=== PATIENT | female | born 1975 ===

== ENCOUNTER 2017-07-02 07:19 | Emergency (ER) | payer OTHER ==
[~2017-07-02] VITALS: Ht 160 cm; Wt 53.0 kg
[2017-07-02 07:21] VITALS: Ht 160 cm; Wt 53.0 kg
[2017-07-02] MEDS ORDERED: ALBUT/IPRATROP 3MG/0.5MG NEB 3 ML VIAL INH STA (07:31)
[2017-07-02] MEDS ORDERED: OSELTAMIVIR PHOSPHATE 75 MG CAP PO STA (07:31)
[2017-07-02] MEDS: ACETAMINOPHEN 500 MG TAB PO STA ×2 (07:31→07:40)
[2017-07-02] MEDS ORDERED: ONDANSETRON 4MG OD TAB PO STA (07:31)
[2017-07-02] MEDS ORDERED: PRED20TA PO ×2 (07:36→07:51)
[2017-07-02] MEDS ORDERED: ACET-1222 PO (07:36)
[2017-07-02] MEDS ORDERED: IBUPROFEN 600 MG TAB PO STA (07:47)
[2017-07-02] MEDS ORDERED: ONDA4TAB10 SL (07:51)
[2017-07-02] MEDS ORDERED: OSEL75CA12 PO (07:51)
--- NOTE | 2017-07-02 07:52 | EMERGENCY ROOM VISIT NOTE ---
History Report prepared by Gerald: Alexei Rodriguez Under the Supervision of: Dr. Daron Delgado D.O. First contact with patient: 07:24 Chief Complaint: COUGH Stated Complaint: COUGHING,CAN'T BREATHE Nursing Triage Summary: coughing and fever and hx of asthma but inhaler is not working since saturday c/o SAHA History of Present Illness The patient is a 42 year old female who presents to the Emergency Room with complaints of a persistent cough that she has been experiencing for the past couple of days. The patient states that she has been coughing and experiencing flu-like symptoms for the past couple of days, and recently she has been having difficulty breathing. She is also complaining of nausea, headaches, sorethroat, and a runny nose. Upon arrival to the Emergency Department the patient is febrile. The patient and her note that everyone on her household has began to develop the same symptoms over the past day. She has a history of asthma and does have an inhaler at home. The inhaler has not been improving/ relieving her symptoms. Source of History: patient, spouse/significant other Onset: Couple of days [employer]. Position: other (Respiratory) Quality: other (Cough) Timing: other (Persistent) Associated Symptoms: + fevers, + headache, + sorethroat, + SOB, + nausea Review of Systems See HPI for pertinent positives & negatives. A total of 10 systems reviewed and were otherwise negative. Past Medical & Surgical Medical Problems: (1) History of pre-eclampsia (2) Hx of bronchitis Family History Hypertension Social History Drug Use: none Marital Status: Housing Status: lives with family Current/Historical Medications Scheduled Ondasetron Odt (Zofran Odt), 4 MG SL Q6H Oseltamivir (Tamiflu), 75 MG PO BID Prednisone (Prednisone), 0 PO DAILY Prednisone (Prednisone), 1 TAB PO DAILY Scheduled PRN Acetaminophen (Acetaminophen Extra Stren), 1,000 MG PO Q8 PRN for Pain or Fever Allergies Coded Allergies: No Known Allergies (Verified , 07/02/17) Physical Exam Vital Signs Date Time Temp Pulse Resp B/P (MAP) Pulse Ox O2 Delivery O2 Flow Rate FiO2 07/02/17 08:15 37.0 122 18 114/80 95 07/02/17 07:21 38.1 111 18 131/72 94 Physical Exam CONSTITUTIONAL/VITAL SIGNS: Reviewed / noted above. GENERAL: Non-toxic in appearance. INTEGUMENTARY: Warm, dry, and [place]. HEAD: Normocephalic. EYES: without scleral icterus or trauma. ENT/OROPHARYNX: clear and moist. LYMPHADENOPATHY/NECK: Is supple without lymphadenopathy or meningismus. RESPIRATORY: Lungs clear and equal. CARDIOVASCULAR: Regular rate and rhythm. GI/ABDOMEN: Soft and nontender. No organomegaly or pulsatile mass. No rebound or guarding. Normal bowel sounds. EXTREMITIES: Warm and well perfused. BACK: No CVA tenderness. NEUROLOGICAL: Intact without focal deficits. PSYCHIATRIC: normal affect. MUSCULOSKELETAL: Normally developed with good muscle tone. Medical Decision & Procedures Medications Administered Medications (Trade) Dose Ordered Sig/Rachelle Route Start Time Stop Time Status Last Admin Dose Admin Oseltamivir Phosphate (Tamiflu Cap) 75 mg NOW STAT PO 07/02/17 07:31 07/02/17 07:33 DC 07/02/17 07:40 75 MG Ondansetron HCl (Zofran Odt) 4 mg NOW STAT PO 07/02/17 07:31 07/02/17 07:33 DC 07/02/17 07:39 4 MG Albuterol/ Ipratropium (Duoneb) 3 ml NOW STAT INH 07/02/17 07:31 07/02/17 07:33 DC 07/02/17 07:40 3 ML Prednisone (PredniSONE TAB) 60 mg NOW STAT PO 07/02/17 07:33 07/02/17 07:34 DC 07/02/17 07:40 60 MG Ibuprofen (Motrin Tab) 600 mg NOW STAT PO 07/02/17 07:47 07/02/17 07:50 DC 07/02/17 07:47 600 MG ED Course 0726: Previous medical records were reviewed. The patient was evaluated in room A10. A complete history and physical examination was performed. 0731: Ordered Duoneb INH, Zofran 4 mg PO, Tylenol 500 mg PO, Tamiflu Cap 75 mg PO. 0733: Ordered Prednisone 60 mg PO. 0747: Ordered Motrin 600 mg PO. 0754: On reevaluation, the patient is resting in bed. I discussed the results and findings with the patient. She verbalized agreement of the treatment plan. The patient was discharged home. Medical Decision Differential includes viral illness, influenza, streptococcal pharyngitis, meningitis, pneumonia, sinusitis, UTI, pyelonephritis, otitis media. This is a 42-year-old female who presents to the ED with a chief complaint of shortness of breath. The patient reports a cough, sore throat, runny nose and nausea as well as a slight headache for the past 2 days. She states that all the members of her family have had similar symptoms over the past 4-5 days. She has a temperature today of 38.1. Heart rate is 111. She does report a history of asthma and states that her inhalers aren't helping. The patient's physical exam reveals a 42-year-old female in no distress. Her breathing appears comfortable. Posterior oropharynx is clear. There is no lymphadenopathy. Lungs are currently clear. Abdomen was soft. The patient symptoms are consistent with the flulike illness that has been in the area currently. She was started on Tamiflu since her symptoms have been present for 2 days. She was given Motrin for the fever and some Zofran for nausea. She was given a DuoNeb treatment here as well as started on prednisone for her asthma. She was discharged on a prednisone, Tamiflu and Zofran. Medication Reconcilliation Current Medication List: was personally reviewed by me Blood Pressure Screening Patient's blood pressure: Normal blood pressure Impression Primary Impression: Flu-like symptoms Scribe Attestation The scribe's documentation has been prepared under my direction and personally reviewed by me in its entirety. I confirm that the note above accurately reflects all work, treatment, procedures, and medical decision making performed by me. Departure Information Dispostion Home / Self-Care Prescriptions Prednisone (Prednisone) 20 Mg Tab 1 TAB PO DAILY for 4 Days, #4 TAB Prov: Daron Delgado D.O. 07/02/17 Ondasetron Odt (ZOFRAN ODT) 4 Mg Tab 4 MG SL Q6H for Nausea, #15 TAB Prov: Daron Delgado D.O. 07/02/17 Oseltamivir (Tamiflu) 75 Mg Cap 75 MG PO BID, #10 CAP Prov: Daron Delgado D.O. 07/02/17 Referrals No Doctor, Assigned (PCP) Patient Instructions [facility] Additional Instructions Prednisone as prescribed for asthma. Tamiflu as prescribed for influenza. Zofran: Allow one tablet to dissolve under the tongue every 6 hours as needed for nausea or vomiting. Take Tylenol/Motrin as needed for fevers and discomfort. Drink plenty of fluids. Follow-up with your doctor for further care and evaluation in 5-7 days if not improving. Return to the emergency department for worsening or new symptoms or any concerns. You have been examined and treated today on an emergency basis only. This is not a substitute for, or an effort to provide, complete comprehensive medical care. It is impossible to recognize and treat all injuries or illnesses in a single emergency department visit. It is therefore important that you follow up closely with your doctor. Call as soon as possible for an appointment.
[2017-07-02 08:15] VITALS: BP 114/80; PULSE 122; TEMP 37; O2SAT 95
== END 2017-07-02 08:16 | disposition home or self-care (01) ==
LOC: C.EDB 07:20 → C.EDA 08:16
DX: R50.9 Fever, unspecified (principal); R51 Headache; R05 Cough; R06.02 Shortness of breath